=== PATIENT | male | born 1980 | race African-American/Black ===

== ENCOUNTER 2020-05-17 18:57 | Inpatient (IN) | payer MEDICAID, SELFPAY ==
[~2020-05-17 18:57] MED LIST: Iopamidol-370 76% 500 ML 1 ML ONE
[2020-05-17 19:30] LABS: #Lymphocytes 1.5 thou/uL (1.20-3.40); #Monocytes 0.8 thou/uL (0.11-0.59); #Neutrophils 8.7 thou/uL (1.40-6.50); %Basophils 0.3 % (0.0-1.0); %Eosinophils 0.2 % (0.0-10.0); %Lymphocytes 13.5 % (21.0-51.0); %Monocytes 7.1 % (0.0-10.0); Hemoglobin 14.5 g/dL (14.0-18.0); Mean Corpuscular HGB CONC 29.9 g/dL (32.0-36.0); Mean Corpuscular Hemoglobin 26.5 pg (27.0-31.0); Mean Corpuscular Volume 88.5 fL (78.0-98.0); Platelet Count 240 thou/uL (130-400); RBC Distribution Width 12.2 % (11.5-14.5)
[2020-05-17] MEDS ORDERED: cefTRIAXone\\ROCEPHIN 2 GM VIAL ONE (19:36)
[2020-05-17] MEDS ORDERED: Morphine 4 MG/ML VIAL ONE (19:36)
[2020-05-17 19:43] LABS: Platelet Morphology Comment Appears Adequate; RBC Morphology Normal
--- NOTE | 2020-05-17 19:46 | RAD ---
XR Chest 1 View Portable History: Chest pain Comparison: None Findings: Lungs are clear. No pneumothorax or effusion. Cardiac silhouette and mediastinal contours a re within normal limits. No acute osseous abnormality. Impression: No acute intrathoracic abnormality.
[2020-05-17 20:06] LABS: ALT (SGPT) 28 U/L (8-55); AST (SGOT) 13 U/L (5-34); Albumin 4.3 g/dL (3.5-5.0); Alkaline Phosphatase 130 U/L (40-110); BUN (Urea Nitrogen) 37 mg/dL (8.9-20.6); Bilirubin, Total 0.3 mg/dL (0.2-1.2); Calc. Creatinine Clearance 0 mL/min (70-130); Calcium 8.8 mg/dL (7.8-10.44); Carbon Dioxide Less than 8 mmol/L (22-29); Chloride 93 mmol/L (98-107); Estimated GFR-MDRD 33; Globulin 3.7 g/dL (2.4-3.5); Glucose 871 mg/dL (70-105); Lipase 14 U/L (8-78); Potassium 5.6 mmol/L (3.5-5.1); Sodium 129 mmol/L (136-145)
[2020-05-17 20:14] LABS: Acetaminophen Less than 6.0 mcg/mL (10.0-30.0); Alcohol Less than 10 mg/dL (Less than 10); Salicylate Less than 8.0 mg/dL (15.0-30.0)
[2020-05-17] MEDS ORDERED: Insulin Regular 300 UNITS/3 ML VIAL ONE (20:15)
[2020-05-17] MEDS ORDERED: Insulin Regular 100 units/100 ml in NS IVPB SCH (20:30)
--- NOTE | 2020-05-17 20:52 | CT ---
CT Abdomen Pelvis W Con History: Abdominal pain Comparison: None. Findings: Exam is limited due to motion artifact. The lung bases are clear. No pericardial effusion. Marked distention of the urinary bladder. Mild bilateral hydroureter and dilated renal pelvis by with out distal obstructing stone. The liver, spleen, pancreas, adrenal glands are unremarkable. The aortoiliac contour is nonaneurysmal . The appendix is visualized and is normal. Few mildly enlarged ileocolic mesenteric lymph nodes. No acute osseous abnormality. Impression: 1. Marked distention of the urinary bladder with subsequent mild dilatation of both renal pelvis and ureters due to increased back pressure. Evaluation for neurogenic bladder recommended. Olivo catheterization suggested. 2. No other acute inflammatory process within the abdomen or pelvis. Normal appendix.
[2020-05-17 21:09] LABS: Bilirubin Negative (Negative); Blood, Urine 1+ (Negative); Clarity Clear (Clear); Glucose, Urine (Dipstick) Greater than 1000 mg/dL (Negative); Leukocyte Negative Leu/uL (Negative); Mucous/LPF Rare LPF (<2+); Nitrite Negative (Negative); Protein, Urine (Dipstick) 20 mg/dL (Neg-Trace); RBC/HPF 0-3 HPF (0-3); Squamous Epithelial 0-3 HPF (0-3); Urobilinogen Normal mg/dL (Less than 2); WBC/HPF 0-3 HPF (0-3)
[2020-05-17 21:16] LABS: Bacteria/HPF Rare-Few HPF (None Seen)
[2020-05-17] MEDS ORDERED: Famotidine/PF 20 mg/2ml Vial SLOW IVP PRN (21:24)
[2020-05-17] MEDS ORDERED: NS 0.9% w/ 20 MEQ KCL 1,000 ML IV PRN ×2 (21:24)
[2020-05-17] MEDS ORDERED: Electrolyte Replacement Protoc 1 EACH EACH IVPB PRN (21:24)
[2020-05-17] MEDS ORDERED: Ondansetron ODT 4 MG TAB PO PRN (21:24)
[2020-05-17] MEDS ORDERED: Dextrose 5 %-0.45 % NaCl 1,000 ML IV PRN (21:24)
[2020-05-17] MEDS ORDERED: D5 1/2 NS w/20 mEq KCL 1,000 ML IV PRN (21:24)
[2020-05-17] MEDS ORDERED: Sodium Chloride 0.9% 1,000 ML IV PRN ×4 (21:24)
--- NOTE | 2020-05-17 21:29 | PDOC.HHP ---
Hospitalist HPI - History of Present Illness abdominal pain History of Present Illness: Case of an 40y/o male with pmhx of DMt2 who comes to hospital due to abdominal pain. patient refers he was on his usual state of health until about a week ago when he noticed he started with polyuria and polydyspsia. symptoms kept progressing and 2 days ago patient started with abdominal pain nause and vomiting. symptoms continued to progressed until pain was unberable 10/10 in epigastric area, non radiating and patient decided to come to hospital. At the ED patient was diagnosed with DKA with blood glucouse over 800, elevated anion gap acidosis and positive ketones in urine for which hospitalist was consulted for further evaluation and management. patient denies any fever chills dysuria diarrhe or cough, states has been compliant with medication despite not eating in the last 2 days due to abd discomfort. does refers this has happened in the past Hospitalist ROS - Review of Systems All other systems reviewed; all pertinent +/- noted in HPI/Subj Hospitalist History - Past Medical History Source: patient Endocrine: reports: Diabetes - Past Surgical History Past Surgical History: reports: no pertinent history - Family History Family History: reports: diabetes mellitus - Social History Smoking Status: Former smoker Alcohol: reports: None Drugs: reports: none Activity level: independent ambulation - Exam General Appearance: NAD, awake alert Eye: PERRL, anicteric sclera ENT: normocephalic atraumatic, no oropharyngeal lesions, dry oral mucosa Neck: supple, symmetric, no JVD, no thyromegaly Heart: no murmur, no gallops, no rubs, normal peripheral pulses Heart - other findings: tachycardia Respiratory: CTAB, no wheezes, no rales Gastrointestinal: soft, non-distended, normal bowel sounds, no palpable masses Extremities: no cyanosis, no clubbing, no edema Skin: normal turgor, no lesions, no rashes Neurological: cranial nerve grossly intact, normal sensation to touch, no weakness Musculoskeletal: normal tone, normal strength, no muscle wasting Psychiatric: normal affect, normal behavior, A&O x 3 Hospitalist Results - Labs Result Diagrams: 05/17/20 19:12 05/17/20 19:12 Lab results: WBC 11.0 thou/uL (4.8-10.8) H 05/17/20 19:12 Hgb 14.5 g/dL (14.0-18.0) 05/17/20 19:12 Hct 48.6 % (42.0-52.0) 05/17/20 19:12 MCV 88.5 fL (78.0-98.0) 05/17/20 19:12 Plt Count 240 thou/uL (130-400) 05/17/20 19:12 Neutrophils % 79.0 % (42.0-75.0) H 05/17/20 19:12 Sodium 129 mmol/L (136-145) L 05/17/20 19:12 Potassium 5.6 mmol/L (3.5-5.1) H 05/17/20 19:12 Chloride 93 mmol/L (98-107) L 05/17/20 19:12 Carbon Dioxide Less than 8 mmol/L (22-29) L* 05/17/20 19:12 BUN 37 mg/dL (8.9-20.6) H 05/17/20 19:12 Creatinine 2.62 mg/dL (0.7-1.3) H 05/17/20 19:12 Glucose 871 mg/dL (70-105) H* 05/17/20 19:12 Calcium 8.8 mg/dL (7.8-10.44) 05/17/20 19:12 Total Bilirubin 0.3 mg/dL (0.2-1.2) 05/17/20 19:12 AST 13 U/L (5-34) 05/17/20 19:12 ALT 28 U/L (8-55) 05/17/20 19:12 Alkaline Phosphatase 130 U/L (40-110) H 05/17/20 19:12 Troponin I Less than 0.010 ng/mL (< 0.028) 05/17/20 19:12 B-Natriuretic Peptide Less than 10.0 pg/mL (0-100) 05/17/20 19:12 Serum Total Protein 8.0 g/dL (6.0-8.3) 05/17/20 19:12 Albumin 4.3 g/dL (3.5-5.0) 05/17/20 19:12 Lipase 14 U/L (8-78) 05/17/20 19:12 Urine Ketones 100 mg/dL (Negative) A 05/17/20 20:56 Urine Blood 1+ (Negative) A 05/17/20 20:56 Urine Nitrite Negative (Negative) 05/17/20 20:56 Ur Leukocyte Esterase Negative Kj/uL (Negative) 05/17/20 20:56 Urine RBC 0-3 HPF (0-3) 05/17/20 20:56 Urine WBC 0-3 HPF (0-3) 05/17/20 20:56 Ur Squamous Epith Cells 0-3 HPF (0-3) 05/17/20 20:56 Urine Bacteria Rare-Few HPF (None Seen) 05/17/20 20:56 - Radiology Interpretation CT scan - abdomen Additional Comment: distended bladder Chest x-ray Additional Comment: no consolidation effusions or infiltrates Hospitalist H&P A/P - Problem (1) DKA (diabetic ketoacidoses) Code(s): E11.10 - TYPE 2 DIABETES MELLITUS WITH KETOACIDOSIS WITHOUT COMA Status: Acute (2) Metabolic acidosis due to diabetes mellitus Code(s): E11.69 - TYPE 2 DIABETES MELLITUS WITH OTHER SPECIFIED COMPLICATION; E87.2 - ACIDOSIS Status: Acute (3) Nausea & vomiting Code(s): R11.2 - NAUSEA WITH VOMITING, UNSPECIFIED Status: Acute (4) Intractable abdominal pain Code(s): R10.9 - UNSPECIFIED ABDOMINAL PAIN Status: Acute (5) Obese Code(s): E66.9 - OBESITY, UNSPECIFIED Status: Acute - Plan Plan: 40 y/o male type 2 DM who presents with DKA - insulin drip -aggressive hydration - bmp q 4 hrs, monitor K and anion gap - accu check q 1 hr - npo -symptomatic tx for n/v - pain management - dvt prophylaxis
[2020-05-17] MEDS ORDERED: HUMULIN R 100 UNITS in Sodium Chloride 0.9% 100 ML IVPB SCH (21:30)
[2020-05-17 22:41] LABS: BUN (Urea Nitrogen) 34 mg/dL (8.9-20.6); Calc. Creatinine Clearance 0 mL/min (70-130); Calcium 8.7 mg/dL (7.8-10.44); Chloride 103 mmol/L (98-107); Estimated GFR-MDRD 39; Potassium 5.1 mmol/L (3.5-5.1); Sodium 136 mmol/L (136-145)
[2020-05-17 22:48] LABS: Carbon Dioxide Less than 8 mmol/L (22-29); Glucose 608 mg/dL (70-105)
[2020-05-18 00:55] VITALS: BMI 31.8
[2020-05-18] MEDS: Ondansetron PF 4 MG/2 ML Vial IVP PRN ×2 (01:06→23:22)
[2020-05-18 02:18] LABS: Anion Gap 25 mmol/L (10-20); BUN (Urea Nitrogen) 29 mg/dL (8.9-20.6); Calc. Creatinine Clearance 73 mL/min (70-130); Calcium 8.1 mg/dL (7.8-10.44); Carbon Dioxide 10 mmol/L (22-29); Chloride 106 mmol/L (98-107); Estimated GFR-MDRD 52; Glucose 335 mg/dL (70-105); Potassium 4.6 mmol/L (3.5-5.1); Sodium 136 mmol/L (136-145)
[2020-05-18 04:02] LABS: Anion Gap 20 mmol/L (10-20); BUN (Urea Nitrogen) 27 mg/dL (8.9-20.6); Calc. Creatinine Clearance 80 mL/min (70-130); Calcium 8.1 mg/dL (7.8-10.44); Carbon Dioxide 14 mmol/L (22-29); Chloride 107 mmol/L (98-107); Estimated GFR-MDRD 58; Glucose 266 mg/dL (70-105); Potassium 4.4 mmol/L (3.5-5.1); Sodium 137 mmol/L (136-145)
[2020-05-18 06:19] LABS: Anion Gap 23 mmol/L (10-20); BUN (Urea Nitrogen) 25 mg/dL (8.9-20.6); Calc. Creatinine Clearance 84 mL/min (70-130); Carbon Dioxide 12 mmol/L (22-29); Chloride 106 mmol/L (98-107); Estimated GFR-MDRD 61; Glucose 289 mg/dL (70-105); Potassium 4.9 mmol/L (3.5-5.1); Sodium 136 mmol/L (136-145)
[2020-05-18] MEDS: Enoxaparin Sodium 40 MG/0.4 ML SYRINGE SC SCH (08:22)
[2020-05-18 08:23] LABS: Bicarbonate (HCO3v) 6.5 mmol/L (22.0-28.0); CO2 Tension (PvCO2) 24.3 mmHg (40.0-50.0)
[2020-05-18 08:24] LABS: Base Excess-Venous -22.7 mmol/L (-2.0 to 3.0); Calcium, Ionized 1.04 mmol/L (See Comments:); Chloride 101 mmol/L (98-107); Hemoglobin - Calc 17.4 g/dL (14.0-18.0); Potassium 5.4 mmol/L (3.5-5.1); Sodium 126 mmol/L (138-145); T. Carbon Dioxide 7.3 mmol/L (22.0-28.0); vO2 Saturation-calc 74.7 % (60.0-85.0)
[2020-05-18 08:25] LABS: Glucose Greater than 700 mg/dL (70-105); Lactate 6.65 mmol/L (0.50-2.20)
[2020-05-18 11:26] LABS: Lactic Acid 0.7 mmol/L (0.5-2.2)
--- NOTE | 2020-05-18 11:35 | PDOC.HOSPP ---
- Subjective Encounter Date: 05/18/20 Subjective: Patient says he is feeling better this morning. Denies any specific complaints. Patient actually only responds by nodding his head until asked to speak eventually. He then only ask if he is going to be able to get food. Has no further abdominal pain no nausea. - Objective Vital Signs & Weight: Vital Signs (12 hours) Temp Pulse Ox 05/18/20 11:26 99.0 F 05/18/20 08:00 100 05/18/20 07:17 98.6 F 05/18/20 03:42 98.7 F 05/18/20 00:28 98.8 F Weight Weight 203 lb 9.6 oz Most Recent Monitor Data Heart Rate from ECG 99 NIBP 102/47 NIBP BP-Mean 65 Respiration from ECG 13 SpO2 100 I&O: 05/17/20 05/18/20 05/19/20 06:59 06:59 06:59 Intake Total 1536 776.0 Output Total 950 Balance 586 776.0 Result Diagrams: 05/17/20 19:12 05/18/20 05:34 Additional Labs: Accuchecks 05/18/20 05/18/20 05/18/20 10:39 09:41 08:43 POC Glucose 239 H 261 H 240 H 05/18/20 05/18/20 05/18/20 07:47 06:25 05:09 POC Glucose 257 H 284 H 276 H 05/18/20 05/18/20 05/18/20 04:10 03:26 02:16 POC Glucose 217 H 239 H 278 H 05/18/20 05/17/20 05/17/20 01:32 22:56 22:23 POC Glucose 322 H 447 H 459 H 05/17/20 21:07 POC Glucose Greater than 550 H* Hospitalist ROS - Medication Medications: Active Medications Generic Name Dose Route Start Last Admin Trade Name Freq PRN Reason Stop Dose Admin Enoxaparin Sodium 40 mg 05/18/20 09:00 05/18/20 08:22 Lovenox SC 40 mg 0900 TAMIR Administration Potassium Chloride/Dextrose/Sod Cl 1,000 mls @ 250 mls/hr 05/17/20 21:24 04:19 D5 1/2 Ns W/20 Meq Kcl IV 1,000 mls .Q4H PRN Administration Step 4 of DKA Protocol Protocol Ondansetron HCl 4 mg 05/17/20 21:24 05/18/20 01:06 Zofran IVP 4 mg Q6H PRN Administration Nausea/Vomiting Sodium Chloride 10 ml 05/18/20 09:00 05/18/20 08:24 Flush - Normal Saline IVF Not Given Q12HR TAMIR - Exam General Appearance: NAD, awake alert Heart: RRR, no murmur, no gallops, no rubs Heart - other findings: Mild tachycardia Respiratory: CTAB, no wheezes, no rales, no ronchi, normal chest expansion, no tachypnea, normal percussion Gastrointestinal: soft, non-tender, non-distended, normal bowel sounds, no palpable masses, no hepatomegaly, no splenomegaly, no bruit Extremities: no cyanosis, no clubbing, no edema Skin: normal turgor, no lesions, no rashes Neurological: no focal deficits Musculoskeletal: normal tone, normal strength, no muscle wasting Psychiatric: normal affect, normal behavior, A&O x 3 Hosp A/P (1) DKA (diabetic ketoacidoses) Code(s): E11.10 - TYPE 2 DIABETES MELLITUS WITH KETOACIDOSIS WITHOUT COMA Status: Acute (2) Diabetes mellitus Code(s): E11.9 - TYPE 2 DIABETES MELLITUS WITHOUT COMPLICATIONS Status: Acute (3) Abdominal pain Code(s): R10.9 - UNSPECIFIED ABDOMINAL PAIN Status: Resolved (4) Nausea & vomiting Code(s): R11.2 - NAUSEA WITH VOMITING, UNSPECIFIED Status: Resolved (5) Obese Code(s): E66.9 - OBESITY, UNSPECIFIED Status: Acute - Plan Patient appears to be improving. Continue with the DKA protocol. We will repeat labs now. His last check his anion gap was still at 23. Clinically looks much better. We will go ahead and let him eat a diabetic diet. We will continue to monitor until he resolves his anion gap and then will start him on some long-acting insulin.
[2020-05-18 14:08] LABS: Anion Gap 10 mmol/L (10-20); BUN (Urea Nitrogen) 18 mg/dL (8.9-20.6); Calc. Creatinine Clearance 97 mL/min (70-130); Calcium 7.9 mg/dL (7.8-10.44); Carbon Dioxide 21 mmol/L (22-29); Chloride 109 mmol/L (98-107); Estimated GFR-MDRD 72; Glucose 171 mg/dL (70-105); Potassium 3.8 mmol/L (3.5-5.1); Sodium 136 mmol/L (136-145)
[2020-05-18] MEDS ORDERED: Dextrose 50% Abboject 50 ML SYRINGE IVP PRN (17:07)
[2020-05-18] MEDS ORDERED: Dextrose 5% in Water 1,000 ML IV PRN (17:07)
[2020-05-18] MEDS ORDERED: Insulin Glargine 10 UNITS in Pre-Filled Syringe 1 EACH SC SCH (17:15)
[2020-05-18 18:10] LABS: Anion Gap 13 mmol/L (10-20); BUN (Urea Nitrogen) 15 mg/dL (8.9-20.6); Calc. Creatinine Clearance 101 mL/min (70-130); Calcium 7.7 mg/dL (7.8-10.44); Carbon Dioxide 18 mmol/L (22-29); Chloride 108 mmol/L (98-107); Estimated GFR-MDRD 76; Glucose 182 mg/dL (70-105); Potassium 4.2 mmol/L (3.5-5.1); Sodium 135 mmol/L (136-145)
[2020-05-18] MEDS: HumaLOG 300 UNITS/3 ML VIAL SC PRN (20:08)
[2020-05-19] MEDS: HumaLOG 300 UNITS/3 ML VIAL SC PRN ×2 (06:12→13:03)
[2020-05-19 07:39] LABS: Hemoglobin 12.8 g/dL (14.0-18.0); Mean Corpuscular HGB CONC 32.5 g/dL (32.0-36.0); Mean Corpuscular Hemoglobin 26.1 pg (27.0-31.0); Mean Corpuscular Volume 80.6 fL (78.0-98.0); Platelet Count 163 thou/uL (130-400); RBC Distribution Width 11.9 % (11.5-14.5); Red Blood Cell (RBC) Count 4.91 mill/uL (4.70-6.10); White Blood Cell (WBC) Count 3.6 thou/uL (4.8-10.8)
[2020-05-19 07:53] LABS: Anion Gap 17 mmol/L (10-20); BUN (Urea Nitrogen) 16 mg/dL (8.9-20.6); Calc. Creatinine Clearance 94 mL/min (70-130); Calcium 7.9 mg/dL (7.8-10.44); Carbon Dioxide 18 mmol/L (22-29); Chloride 104 mmol/L (98-107); Estimated GFR-MDRD 70; Glucose 268 mg/dL (70-105); Sodium 135 mmol/L (136-145)
[2020-05-19 08:31] LABS: Band 9 % (5-11); Lymphocytes 30 % (21-51); MDiff Complete? YES; Monocytes 12 % (0-10); Neutrophil 49 % (42-75); Platelet Morphology Comment Appears Adequate; RBC Morphology Normal
[2020-05-19] MEDS: Enoxaparin Sodium 40 MG/0.4 ML SYRINGE SC SCH (09:03)
[2020-05-19] MEDS: Insulin Glargine 20 UNITS in Pre-Filled Syringe 1 EACH SC SCH (09:28)
--- NOTE | 2020-05-19 18:43 | PDOC.HOSPP ---
- Subjective Encounter Date: 05/19/20 Subjective: Generally doing better. He reported this morning that he was having some abdominal pain prior to my arrival. On my arrival the patient denied any abdominal pain. He did report some anorexia and was not much interested in his breakfast. He has not been up and around much either. - Objective Vital Signs & Weight: Vital Signs (12 hours) Temp Pulse Resp BP Pulse Ox 05/19/20 16:30 98.6 F 72 18 142/75 H 99 05/19/20 15:24 98.8 F 05/19/20 11:34 98.8 F 05/19/20 08:00 100 05/19/20 07:11 99.0 F Weight Weight 203 lb 9.6 oz Most Recent Monitor Data Heart Rate from ECG 81 NIBP 98/71 NIBP BP-Mean 80 Respiration from ECG 18 SpO2 100 I&O: 05/18/20 05/19/20 05/20/20 06:59 06:59 06:59 Intake Total 1536 2840.5 376 Output Total 950 2350 1870 Balance 586 490.5 -1494 Result Diagrams: 05/19/20 07:13 05/19/20 07:13 Additional Labs: Accuchecks 05/19/20 05/19/20 05/18/20 11:01 06:06 20:08 POC Glucose 272 H 288 H 243 H Hospitalist ROS - Medication Medications: Active Medications Generic Name Dose Route Start Last Admin Trade Name Freq PRN Reason Stop Dose Admin Enoxaparin Sodium 40 mg 05/18/20 09:00 05/19/20 09:03 Lovenox SC 40 mg 0900 TAMIR Administration Insulin Glargine 20 units/ 0.2 mls @ 0 mls/hr 05/19/20 09:00 05/19/20 09:28 Miscellaneous Medication SC 0.2 mls DAILY TAMIR Administration As Directed Insulin Human Lispro 0 units 05/18/20 17:07 05/19/20 13:03 Humalog SC 6 unit .MODERATE SLIDING SC PRN Administration MODERATE SLIDING SCALE Protocol Ondansetron HCl 4 mg 05/17/20 21:24 05/18/20 23:22 Zofran IVP 4 mg Q6H PRN Administration Nausea/Vomiting Sodium Chloride 10 ml 05/18/20 09:00 05/19/20 10:09 Flush - Normal Saline IVF 10 ml Q12HR TAMIR Administration - Exam General Appearance: NAD, awake alert Heart: RRR, no murmur, no gallops, no rubs, normal peripheral pulses Respiratory: CTAB, no wheezes, no rales, no ronchi, normal chest expansion, no tachypnea, normal percussion Gastrointestinal: soft, non-tender, non-distended, normal bowel sounds, no palpable masses, no hepatomegaly, no splenomegaly, no bruit Extremities: no cyanosis, no clubbing, no edema Skin: normal turgor, no lesions, no rashes Musculoskeletal: normal tone Psychiatric: normal affect, normal behavior, A&O x 3 Psychiatric - other findings: Stoic and reluctant to speak. Hosp A/P (1) DKA (diabetic ketoacidoses) Code(s): E11.10 - TYPE 2 DIABETES MELLITUS WITH KETOACIDOSIS WITHOUT COMA Status: Acute (2) Diabetes mellitus Code(s): E11.9 - TYPE 2 DIABETES MELLITUS WITHOUT COMPLICATIONS Status: Acute (3) Abdominal pain Code(s): R10.9 - UNSPECIFIED ABDOMINAL PAIN Status: Resolved (4) Nausea & vomiting Code(s): R11.2 - NAUSEA WITH VOMITING, UNSPECIFIED Status: Resolved (5) Obese Code(s): E66.9 - OBESITY, UNSPECIFIED Status: Acute (6) Acute kidney injury Code(s): N17.9 - ACUTE KIDNEY FAILURE, UNSPECIFIED Status: Acute - Plan Patient appears to be improving. His anion gap is resolved. He is off the insulin drip. I have resumed his usual home dose of Lantus 20 units in the morning. Continue with moderate sliding scale. Throughout the day his blood sugars appear to have continue to run high. Can add some additional Lantus for the night. We will recheck labs in the morning. Encouraged increased ambulation. His renal indices are improving. His GFR is back up to 70. Unclear as to what his baseline is.
[2020-05-19] MEDS ORDERED: Insulin Glargine 10 UNITS in Pre-Filled Syringe 1 EACH SC SCH (21:00)
[2020-05-19] MEDS ORDERED: HumaLOG 300 UNITS/3 ML VIAL SC PRN (21:05)
--- NOTE | 2020-05-19 21:55 | RAD ---
XR Chest 1 View Portable History: Altered mental status Comparison: Radiograph 2 days prior Findings: Lungs are clear. No pneumothorax or effusion. Cardiac silhouette and mediastinal contours a re within normal limits. Impression: No acute intrathoracic abnormality.
[2020-05-20] MEDS: HumaLOG 300 UNITS/3 ML VIAL SC PRN (06:13)
[2020-05-20 07:01] LABS: Anion Gap 14 mmol/L (10-20); BUN (Urea Nitrogen) 12 mg/dL (8.9-20.6); Calc. Creatinine Clearance 118 mL/min (70-130); Calcium 7.9 mg/dL (7.8-10.44); Carbon Dioxide 23 mmol/L (22-29); Chloride 101 mmol/L (98-107); Estimated GFR-MDRD 90; Glucose 240 mg/dL (70-105); Potassium 3.6 mmol/L (3.5-5.1); Sodium 134 mmol/L (136-145)
[2020-05-20] MEDS ORDERED: Famotidine 20 MG TAB PO PRN (08:09)
[2020-05-20 08:27] VITALS: BP 128/80; TEMP 98.8
[2020-05-20] MEDS: Insulin Glargine 20 UNITS in Pre-Filled Syringe 1 EACH SC SCH (09:20)
[2020-05-20] MEDS: Enoxaparin Sodium 40 MG/0.4 ML SYRINGE SC SCH (09:21)
--- NOTE | 2020-05-20 21:22 | DIS ---
DATE OF ADMISSION: 05/17/2020 DATE OF DISCHARGE: 05/20/2020 DISCHARGE DIAGNOSES: 1. Diabetic ketoacidosis. 2. Diabetes mellitus. 3. Abdominal pain. 4. Nausea, vomiting. 5. Obesity. 6. Acute kidney injury. HISTORY OF PRESENT ILLNESS: This patient is a 40-year-old male, has a history of diabetes. Patient recently moved to the area and does not have a primary care provider. He also did not have a glucometer to be able to monitor his blood sugars and was not really quite sure what his blood sugar range should be. The patient presented to the emergency department with abdominal pain, nausea, vomiting, and was found to be in diabetic ketoacidosis. HOSPITAL COURSE: The patient was admitted to the hospital. He had a CT of the abdomen and pelvis, which showed some bladder distention with subtle associated hydronephrosis. He subsequently was able to void well on his own. However, he was started on the DKA protocol. He did have some evidence of acute kidney injury with a GFR of 33 with hydration. His renal function improved and his GFR ultimately came up to 90 at the time of discharge. His anion gap normalized with insulin drip and fluids. He was able to come off the drip, convert over to long-acting and short-acting insulin. He felt well. His labs remained normal other than blood sugar still ranging in the 200s. He had some adjustments made with that, but he was tolerating a regular diet. All abdominal pain had resolved and he was felt stable for discharge. DISCHARGE EXAMINATION: VITAL SIGNS: On the day of discharge, temperature is 98.8, pulse 74, respirations 18, O2 saturation 99% on room air, and blood pressure 128/80. GENERAL: He is awake and alert. HEART: Regular rate and rhythm. LUNGS: Clear bilaterally. ABDOMEN: Benign. EXTREMITIES: No edema. DISPOSITION: The patient is discharged to home. He is to increase his Lantus regimen to Levemir 30 units in the morning, 10 units at night and continue with 15 units of NovoLog with his meals. He is given a prescription for a new glucometer and he is strongly encouraged to establish with a new primary care provider. He was given a list of potential options for local providers. His activity is as tolerated. He will be on a diabetic diet. He can return to the hospital at anytime should he have the need to do so. TIME SPENT: Total time in discharge activities was greater than 35 minutes. Job ID: [id number]
== END 2020-05-20 11:30 | disposition home or self-care (01) | DRG 638 ==
LOC: ERS 18:57 → IMCU/EMU 21:54 → T4-A 05-19 16:36
PROVIDERS: ADMIT Internal Medicine; ATTEND Internal Medicine
DX: E11.10 Type 2 diabetes mellitus with ketoacidosis without coma (principal); N17.9 Acute kidney failure, unspecified; E66.9 Obesity, unspecified; Z87.891 Personal history of nicotine dependence; Z68.31 Body mass index [BMI] 31.0-31.9, adult; Z88.0 Allergy status to penicillin; Z79.4 Long term (current) use of insulin
CPT/HCPCS: 36415; 36416; 71045; 74177; 80048; 80053; 80307; 81003; 81015; 82330; 82803; 83605; 83690; 83880; 84484; 85014; 85025; 87040; 93005; 96361; 96365; 96366; 96375; J0696; J1650; J1815; J2270; J2405; J3480; J3490; Q9967

== ENCOUNTER 2020-06-06 19:04 | Emergency (ER) | payer MEDICAID, SELFPAY ==
[2020-06-06] MEDS ORDERED: Mag-Al 1200 mg/1200 mg/30 ML UDCUP ONE (19:46)
[2020-06-06] MEDS ORDERED: Lidocaine Viscous Sol 2% 15 ml UD Cup ONE (19:46)
[2020-06-06] MEDS ORDERED: Insulin Regular 300 UNITS/3 ML VIAL ONE (20:02)
[2020-06-06 20:11] LABS: Hemoglobin 12.2 g/dL (14.0-18.0); Mean Corpuscular HGB CONC 32.8 g/dL (32.0-36.0); Mean Corpuscular Hemoglobin 26.3 pg (27.0-31.0); Mean Corpuscular Volume 80.3 fL (78.0-98.0); Mean Platelet Volume 8.5 fL (7.4-10.4); Platelet Count 156 thou/uL (130-400); RBC Distribution Width 11.6 % (11.5-14.5); Red Blood Cell (RBC) Count 4.65 mill/uL (4.70-6.10); White Blood Cell (WBC) Count 3.3 thou/uL (4.8-10.8)
[2020-06-06 20:29] LABS: ALT (SGPT) 56 U/L (8-55); AST (SGOT) 29 U/L (5-34); Albumin 3.7 g/dL (3.5-5.0); Alkaline Phosphatase 124 U/L (40-110); Anion Gap 11 mmol/L (10-20); BUN (Urea Nitrogen) 8 mg/dL (8.9-20.6); Band 9 % (5-11); Bilirubin, Total 0.3 mg/dL (0.2-1.2); Calc. Creatinine Clearance 0 mL/min (70-130); Calcium 8.5 mg/dL (7.8-10.44); Carbon Dioxide 28 mmol/L (22-29); Chloride 102 mmol/L (98-107); Estimated GFR-MDRD Greater than 90; Globulin 3.5 g/dL (2.4-3.5); Glucose 426 mg/dL (70-105); Lipase 19 U/L (8-78); Lymphocytes 32 % (21-51); MDiff Complete? YES; Monocytes 14 % (0-10); Neutrophil 25 % (42-75); Platelet Morphology Comment Appears Adequate; Polychromasia SLIGHT = 2-3 cells (100X) (0-2/hpf); Protein, Total 7.2 g/dL (6.0-8.3); Reactive Lymphocytes 20 % (0-10); Sodium 137 mmol/L (136-145)
--- NOTE | 2020-06-06 20:49 | RAD ---
SINGLE VIEW OF THE CHEST: Comparison: 05-19-2020 History: Abdominal pain and esophagus when swallowing food. Chest pain. FINDINGS: Single view of the chest shows a normal sized cardiomediastinal silhouette. There is no evidence of c onsolidation, mass, or pleural effusion. The bones are unremarkable. IMPRESSION: No evidence of acute cardiopulmonary disease. POS: EAA
--- NOTE | 2020-06-06 21:08 | CT ---
CT arteriogram chest with IV contrast and 3-D imaging HISTORY: Chest pain. FINDINGS: There is good contrast opacification of the pulmonary arteries and thoracic aorta with norm al branching great vessels at the aortic arch. Lungs are well-inflated with scattered minimal areas of groundglass parenchymal opacity. No pleural fluid or pneumothorax. No lobar consolidation. No mediastinal adenopathy evident. There is incomplete posterior fusion of several lower thoracic and upper vertebrae. IMPRESSION : No evidence of pulmonary embolus or other acute abnormality.
== END 2020-06-06 22:40 | disposition home or self-care (01) ==
LOC: ERS 19:04
DX: R07.89 Other chest pain (principal); R13.10 Dysphagia, unspecified; E11.9 Type 2 diabetes mellitus without complications; Z79.4 Long term (current) use of insulin
CPT/HCPCS: 36416; 71045; 71275; 80053; 83690; 84484; 85025; 85379; 93005; 94760; 96360; J1815; Q9967

== ENCOUNTER 2020-09-16 08:08 | Emergency (ER) | payer MEDICAID ==
[2020-09-16 09:05] LABS: #Lymphocytes 1.9 thou/uL (1.20-3.40); #Monocytes 0.5 thou/uL (0.11-0.59); #Neutrophils 1.5 thou/uL (1.40-6.50); %Eosinophils 0.9 % (0.0-10.0); %Lymphocytes 46.9 % (21.0-51.0); %Neutrophils 38.2 % (42.0-75.0); Hemoglobin 12.5 g/dL (14.0-18.0); Mean Corpuscular HGB CONC 32.8 g/dL (32.0-36.0); Mean Corpuscular Volume 79.2 fL (78.0-98.0); Mean Platelet Volume 8.1 fL (7.4-10.4); Platelet Count 213 thou/uL (130-400); RBC Distribution Width 11.7 % (11.5-14.5)
[2020-09-16 09:43] LABS: ALT (SGPT) 21 U/L (8-55); AST (SGOT) 29 U/L (5-34); Albumin 3.5 g/dL (3.5-5.0); Alkaline Phosphatase 92 U/L (40-110); Anion Gap 11 mmol/L (10-20); BUN (Urea Nitrogen) 14 mg/dL (8.9-20.6); Bilirubin, Total 0.3 mg/dL (0.2-1.2); CK (CPK) 155 U/L (30-200); Calc. Creatinine Clearance 0 mL/min (70-130); Calcium 8.6 mg/dL (7.8-10.44); Carbon Dioxide 26 mmol/L (22-29); Chloride 103 mmol/L (98-107); Estimated GFR-MDRD Greater than 90; Globulin 4.8 g/dL (2.4-3.5); Glucose 348 mg/dL (70-105); Potassium 4.3 mmol/L (3.5-5.1); Protein, Total 8.3 g/dL (6.0-8.3); Sodium 136 mmol/L (136-145)
[2020-09-16 11:36] LABS: Bacteria/HPF None Seen HPF (None Seen); Bilirubin Negative (Negative); Blood, Urine Negative (Negative); Clarity Clear (Clear); Glucose, Urine (Dipstick) Greater than 1000 mg/dL (Negative); Ketone, Urine Negative (Negative); Leukocyte 250 Leu/uL (Negative); Nitrite Negative (Negative); Protein, Urine (Dipstick) Negative (Neg-Trace); RBC/HPF 0-3 HPF (0-3); Specific Gravity, Urine 1.027 (1.002-1.036); Squamous Epithelial 0-3 HPF (0-3); Urobilinogen Normal mg/dL (Less than 2); Yeast-Budding Rare HPF (None Seen); pH, Urine 5.5 (5.0-9.0)
[2020-09-16 11:38] LABS: Yeast-Hyphae Rare HPF (None Seen)
== END 2020-09-16 11:29 | disposition home or self-care (01) ==
LOC: ERS 08:08
DX: E11.65 Type 2 diabetes mellitus with hyperglycemia (principal); F32.9 Major depressive disorder, single episode, unspecified; Z79.4 Long term (current) use of insulin; Z79.899 Other long term (current) drug therapy
CPT/HCPCS: 80053; 81003; 81015; 82010; 82550; 84484; 85025; 93005; 94760

== ENCOUNTER 2020-09-19 12:12 | Observation (INO) | payer MEDICAID, SELFPAY ==
[2020-09-19 13:03] LABS: Hemoglobin 12.4 g/dL (14.0-18.0); Mean Corpuscular HGB CONC 32.2 g/dL (32.0-36.0); Mean Corpuscular Hemoglobin 26.6 pg (27.0-31.0); Mean Corpuscular Volume 82.7 fL (78.0-98.0); Platelet Count 194 thou/uL (130-400); RBC Distribution Width 11.8 % (11.5-14.5); Red Blood Cell (RBC) Count 4.65 mill/uL (4.70-6.10); White Blood Cell (WBC) Count 4.1 thou/uL (4.8-10.8)
[2020-09-19 13:18] LABS: ALT (SGPT) 17 U/L (8-55); AST (SGOT) 15 U/L (5-34); Albumin 3.7 g/dL (3.5-5.0); Alkaline Phosphatase 100 U/L (40-110); Anion Gap 15 mmol/L (10-20); BUN (Urea Nitrogen) 11 mg/dL (8.9-20.6); Bilirubin, Total 0.5 mg/dL (0.2-1.2); Calc. Creatinine Clearance 0 mL/min (70-130); Calcium 8.5 mg/dL (7.8-10.44); Carbon Dioxide 25 mmol/L (22-29); Chloride 94 mmol/L (98-107); Estimated GFR-MDRD 53; Globulin 3.6 g/dL (2.4-3.5); Potassium 4.8 mmol/L (3.5-5.1); Protein, Total 7.3 g/dL (6.0-8.3); Sodium 129 mmol/L (136-145)
[2020-09-19 13:24] LABS: Bilirubin Negative (Negative); Blood, Urine Negative (Negative); Clarity Clear (Clear); Glucose, Urine (Dipstick) Greater than 1000 mg/dL (Negative); Ketone, Urine Negative (Negative); Leukocyte Negative Leu/uL (Negative); Nitrite Negative (Negative); Protein, Urine (Dipstick) Negative (Neg-Trace); Specific Gravity, Urine 1.028 (1.002-1.036); Urobilinogen Normal mg/dL (Less than 2)
[2020-09-19 13:25] LABS: Band 1 % (5-11); Hypochromia SLIGHT = 6-15 cells (100X) (0-5/hpf); Lymphocytes 45 % (21-51); MDiff Complete? YES; Monocytes 9 % (0-10); Neutrophil 41 % (42-75); Platelet Morphology Comment Appears Adequate; Reactive Lymphocytes 4 % (0-10)
[2020-09-19 13:30] LABS: Glucose 742 mg/dL (70-105)
[2020-09-19 13:45] LABS: Lipase 18 U/L (8-78); Magnesium 1.9 mg/dL (1.6-2.6); Phosphorus 2.9 mg/dL (2.3-4.7)
[2020-09-19] MEDS ORDERED: Insulin Regular 300 UNITS/3 ML VIAL ONE (14:24)
[2020-09-19 14:38] LABS: Analyzer IN Cardio ER
[2020-09-19 14:39] LABS: Actual Bicarbonate (HCO3v) 27 mEq/L (22-28); Calcium, Ionized (venous) 1.08 mmol/L (1.16-1.32); Chloride (VBG) 96 mmol/L (98-106); Hemoglobin (Hb) 11.5 g/dL (13.2-17.3); pH (venous) 7.36 (7.32-7.43)
[2020-09-19] MEDS ORDERED: Ondansetron PF 4 MG/2 ML Vial ONE (15:22)
[2020-09-19 15:46] LABS: Lactic Acid 2.1 mmol/L (0.5-2.2)
--- NOTE | 2020-09-19 16:01 | PDOC.FPRHP ---
- History of Present Illness Chief Complaint: elevated BG History of Present Illness: 40YO AAM with a PMH notable for IDDMII w/ severe LE neuropathy & possible HTN who presented to the ED for evaluation for elevated BG at home. Reports he was checking his BG as he normally does this afternoon and it was in the 400s. He then gave himself a short acting insulin bolus and began to feel nauseous and clammy & requested to be brought to the ER for evaluation. Denies any recent illness but did report a few episodes of diarrhea today and some abdominal cramping but no recent sick contacts, fever/chills, N/V or dysuria or hematuria. Does endorse polyuria. Reports compliance with his home insulin & recently got refills on both. Normally takes his levemir HS so has not taken it yet today. Of note, for the last month has had significant numbness in his B/L LEs from his feet all the way up to his mid calves. Reports he takes gabapentin BID but states it has not been helping. Reports an injury to his back about 20 years ago and associated leg cramping & weakness as well. ED Course: 10U insulin, 2L NS & 8mg zofran - Allergies/Adverse Reactions Allergies Allergy/AdvReac Type Severity Reaction Status Date / Time Penicillins Allergy Verified 05/18/20 00:53 - Home Medications Medication Instructions Recorded Confirmed Type Insulin Aspart [Novolog] 15 unit SQ TID 05/18/20 09/19/20 History Gabapentin 800 mg PO BID 09/19/20 09/19/20 History Insulin Detemir [Levemir] 60 unit SQ HS 09/19/20 09/19/20 History - History PMHx: DM2 w/ neuropathy, HTN (not on meds) PSHx: none FHx: multiple family members with cancer: colon and breast Social: denies T/A/D use, recently moved to from [place], no PCP - Review of Systems General: denies: fever/chills, weight/appetite/sleep changes Eyes: denies: vision changes ENT: denies: nasal congestion, rhinorrhea Respiratory: denies: cough, congestion, shortness of breath Cardiovascular: denies: chest pain, palpitation Gastrointestinal: reports: nausea, diarrhea. denies: vomiting, abdominal pain Genitourinary: reports: polyuria. denies: dysuria Skin: denies: rashes, lesions Musculoskeletal: denies: pain, tenderness Neurological: reports: numbness (b/l LE) Psychological: denies: anxiety - Vital signs BP: 141/83, HR 66, RR 18, T 98.3, O2 98% on RA - Physical Exam Constitutional: NAD, awake, alert and oriented HEENT: normocephalic and atraumatic, grossly normal vision, grossly normal hearing Neck: supple, FROM Heart: RRR, normal S1/S2, no murmurs/rubs/gallops, pulses present, no edema Lungs: CTAB, no respiratory distress, no wheezing Abdomen: soft, bowel sounds present -Abdomen: mild TTP periumbilical Musculoskeletal: normal structure, normal tone, ROM grossly normal -Neurological: decreased sensation bilateral LE up to knees, decreased fine touch and pain sensation Skin: capillary refill <2 seconds, no jaundice Heme/Lymphatic: no unusual bruising or bleeding Psychiatric: normal mood and affect, intact recent and remote memory FMR H&P: Results - Labs Result Diagrams: 09/19/20 12:35 09/19/20 18:48 Lab results: WBC 4.1 thou/uL (4.8-10.8) L 09/19/20 12:35 Hgb 12.4 g/dL (14.0-18.0) L 09/19/20 12:35 Hct 38.4 % (42.0-52.0) L 09/19/20 12:35 MCV 82.7 fL (78.0-98.0) 09/19/20 12:35 Plt Count 194 thou/uL (130-400) 09/19/20 12:35 Band Neuts % (Manual) 1 % (5-11) L 09/19/20 12:35 VBG pH 7.36 (7.32-7.43) 09/19/20 14:30 VBG pCO2 48.7 mmHg (42.0-51.0) 09/19/20 14:30 VBG pO2 64.2 mmHg (35.0-45.0) H 09/19/20 14:30 Sodium 129 mmol/L (136-145) L 09/19/20 12:35 Potassium 4.8 mmol/L (3.5-5.1) 09/19/20 12:35 Chloride 94 mmol/L (98-107) L 09/19/20 12:35 Carbon Dioxide 25 mmol/L (22-29) 09/19/20 12:35 BUN 11 mg/dL (8.9-20.6) 09/19/20 12:35 Creatinine 1.74 mg/dL (0.7-1.3) H 09/19/20 12:35 Glucose 742 mg/dL (70-105) H* 09/19/20 12:35 Lactic Acid 2.1 mmol/L (0.5-2.2) 09/19/20 15:21 Calcium 8.5 mg/dL (7.8-10.44) 09/19/20 12:35 Total Bilirubin 0.5 mg/dL (0.2-1.2) 09/19/20 12:35 AST 15 U/L (5-34) 09/19/20 12:35 ALT 17 U/L (8-55) 09/19/20 12:35 Alkaline Phosphatase 100 U/L (40-110) 09/19/20 12:35 Serum Total Protein 7.3 g/dL (6.0-8.3) 09/19/20 12:35 Albumin 3.7 g/dL (3.5-5.0) 09/19/20 12:35 Lipase 18 U/L (8-78) 09/19/20 12:35 Urine Ketones Negative mg/dL (Negative) 09/19/20 12:52 Urine Blood Negative (Negative) 09/19/20 12:52 Urine Nitrite Negative (Negative) 09/19/20 12:52 Ur Leukocyte Esterase Negative Kj/uL (Negative) 09/19/20 12:52 - EKG Interpretation EKG: reviewed, NSR FMR H&P: A/P - Plan 40yo male with hx of DM2 who presents with hyperglycemia and weakness #HHS -BG 742 on presentation, given 10units insulin and 2L NS, repeat BG 435 -AG 10, B-hydroxyburtyrate 0.60, pH 7.36 -will recheck BMP q2h, if around 300, will start home meds and SSI -consider insulin drip if BG>400 -NPO until better control -pending A1c, c-peptide, Sosm -LR @ 250ml/hr -CM consulted: [employer] for help with med management #Neuropathy -b/l LE neuropathy, worsening for past month -home meds: gabapentin -pending B12, folate -if B12 low, consider ordering MMA #AMNA -Cr 1.74 on admission. -on IVF as above -pending repeat BMP #Leukopenia: -WBC 4.1 but no s/s infection. -Will continue to trend. #Normocytic anemia: -H/H 12./, MCV 82.7 -pending Fe studies, folate, PBS, B12 #HTN -hx of HTN, not on meds -BP elevated on admission, but now normotensive -Will continue to monitor #DMII -home insulin held pending repeat BMP -Hypoglycemia protocol ordered IVFs: LR @ 250mL/hr VTE PPX: Lovenox Code: Full DIet: NPO, once BG better controlled add CC Dispo: Admit medical obs for BG control, will need to establish with local PCP, LOS<48hrs FMR H&P: Upper Level - Pertinent history PCP: None- CC HPI: 40YOM with a PMH notable for IDDMII presenting to the ED for evaluation for hyperglycemia. Reports he checked his BG this AM at home and it was in the 400s. Gave himself some short acting insulin & then developed dry mouth, nausea & weakness so was brought to the ER for evaluation. Endorses associated diarrhea, polyuria, & abdominal cramping. Denies any fever/chills, recent sick contacts, hematuria, dysuria, cough, or congestion. Reports compliance with his home insulin regimen. On arrival to the ED the patient's BG level was over 700, pH was 7.36 & ketones were 0.60 c/w HHS. Was given 10U regular insulin, 2L NS, & 8mg IV in the ER. ED course: See HPI. See Mathematics Improvement Teacher note for details of PMH. - Pertinent findings Labs/Imaging: EKG NSR pH 7.36 Ketones 0.60 BG 742 down to 435 ~2 hours later Lactate 2.1 K 4.8 UA >1k glucose WBC 4.1 H/H 12.4/38.4 REVIEW OF SYSTEMS: Gen: no fever, chills, + generalized weakness Neuro: no syncope, no weakness Eyes: no visual changes, no eye pain ENT: no sore throat, no congestion Resp: no cough, no SOB Card: no chest pain, no edema GI: + N/V/D, no constipation, + abdominal pain, no melena, no hematochezia : no dysuria, no hematuria, no incontinence MSK: + myalgias in B/L legs Heme: not on blood thinners Skin: no rash, no lesions/sores Vitals: BP: 126/73 HR: 65 RR: 17 Tmax: 98.3F Pox: 98% on RA Wt: 92 kg PHYSICAL EXAMINATION: General: NAD, alert and oriented x4 HEENT: MMM; no pharyngeal erythema or exudates; grossly normal vision & grossly normal hearing Neck: Supple. Full ROM. Heart/Cardiovascular System: RRR, no murmur, no edema, pedal pulses strong & equal Lungs/Respiratory System: CTAB Abdomen/Gastro-Intestinal System: soft w/ no significant abdominal tenderness, normal bowel sounds Extremities: Warm extremities. No cyanosis or edema noted. Compression stockings in place. Neuro: CN 2-12 grossly intact. Significant decreased sensation in B/L LEs from feet to knees w/ normal ROM & strength Psychiatry: Awake, Alert and cooperative with exam. Skin: No lesions, rashes, or ulcers noted. Musculoskeletal: Full ROM throughout - Plan Date/Time: 09/19/20 1601 I, Gaby Sutherland, have evaluated this patient and agree with findings/plan as outlined by engineering intern resident. Pertinent changes/additions are listed here. A/P: #HHS: Patient presented with a BG level of 742 but no anion gap or markedly elevated ketones. Serum pH was also just over 7.3 at 7.36. Was given 10U insulin, 2L NS, and 8mg Zofran. Last BG check around 1530 was down to 435. Will recheck a BMP now & if around 300 ok to continue with TAMIR SQ insulin but if still around 400 or higher will need to start an insulin drip. #Mild dehydration -Due to #1. s/p 2L in ED & will continue IVFs while NPO and hyperglycemia remains >300 w/ LR @ 250mL/hr #AMNA -Due to #1. Cr 1.74 on admission. Will continue to trend with QD BMPs & continue IVFs as noted above. #Leukopenia: -WBC 4.1 but no s/s infection. Will continue to trend. #Normocytic anemia: -H/H 12.4/38 on admission. Will obtain anemia studies including iron studies, peripheral smear, folate & B12 levels. #HTN -BP elevated on presentation in 150 systolic range. Will continue to monitor & likely start on meds tomorrow if it remains elevated overnight. PRNs for now. #DMII -Will hold home insulin dosing in setting of HHS & will adjust PRN based on BG readings while inpatient. A1c pending. -Hypoglycemia protocol ordered. ABx: None IVFs: LR @ 250mL/hr VTE PPX: Lovenox GI PPX: None Code status: FULL CODE Dispo: Admit to medical floor pending latest BMP for BG level s/p IV insulin dose for continued IVFs & TAMIR insulin for HHS. Addendum - Attending - Attending Attestation Date/Time: 09/19/202042 I personally evaluated the patient and discussed the management with Dr. Day/Koko I agree with the History, Examination, Assessment and Plan documented above with any addition or exceptions noted below. 40-year-old [place] male with a history of poorly controlled type 2 diabetes mellitus on insulin. Presents with symptomatic hyperglycemia. states he has been compliant with his insulin regimen but states his glucoses are labile. Also reports history of diabetic neuropathy in his feet and legs is worsened over the past month. States the gabapentin he is currently on is not helping him. States he has Medicaid insurance. Exam is largely unremarkable except for significant paresthesias below the knees bilaterally. Strength and reflexes are appropriate in his lower extremities. observation for severe hyperglycemia without DKA or HHS. we will aggressively titrate his insulin. continue every 2 hours BMPs and is untill his glucose is under 300 at which point we will go to every 6 hour Accu-Cheks. given that he has had little relief of his neuropathic symptoms on gabapentin, will start duloxetine and he will need to be titrated off gabapentin outpatient. I explained to him that his symptoms are likely due to his poorly controlled diabetes and that the current neurologic damage may be permanent. he expressed understanding. patient has mild anemia which is being worked up with iron studies, B12, and folate. I do not suspect that he has a component of vitamin B12 deficiency with his neuropathy and that is likely due to his poorly controlled type 2 diabetes. observation, medical, less than 2 midnights.
[2020-09-19 17:02] LABS: Anion Gap 13 mmol/L (10-20); BUN (Urea Nitrogen) 12 mg/dL (8.9-20.6); Calc. Creatinine Clearance 0 mL/min (70-130); Calcium 8.5 mg/dL (7.8-10.44); Carbon Dioxide 23 mmol/L (22-29); Chloride 103 mmol/L (98-107); Estimated GFR-MDRD 81; Glucose 389 mg/dL (70-105); Potassium 4.2 mmol/L (3.5-5.1); Sodium 135 mmol/L (136-145)
[2020-09-19] MEDS ORDERED: Dextrose 50% Abboject 50 ML SYRINGE SLOW IVP PRN (17:05)
[2020-09-19] MEDS ORDERED: Acetaminophen 325 MG TAB PO PRN (17:05)
[2020-09-19] MEDS ORDERED: Ondansetron PF 4 MG/2 ML Vial IVP PRN (17:05)
[2020-09-19] MEDS ORDERED: Dextrose 5% in Water 1,000 ML IV PRN (17:05)
[2020-09-19 17:11] LABS: Hemoglobin A1c Greater than 14.0 % (4.0-6.0)
[2020-09-19 17:44] VITALS: BMI 33.8
[2020-09-19] MEDS: Lactated Ringer's 1,000 ML IV SCH ×2 (18:31→21:25)
[2020-09-19 19:19] LABS: Iron Binding Capacity, Total 246 mcg/dL (261-462); Transferrin, Serum 197 mg/dL (174-364)
[2020-09-19 19:20] LABS: Anion Gap 15 mmol/L (10-20); BUN (Urea Nitrogen) 12 mg/dL (8.9-20.6); Calc. Creatinine Clearance 101 mL/min (70-130); Calcium 8.6 mg/dL (7.8-10.44); Carbon Dioxide 25 mmol/L (22-29); Chloride 101 mmol/L (98-107); Estimated GFR-MDRD 71; Glucose 389 mg/dL (70-105); Potassium 4.5 mmol/L (3.5-5.1); Sodium 136 mmol/L (136-145)
[2020-09-19 19:42] LABS: Ferritin 119.08 ng/mL (22-322); Thyroid Stimulating Hormone 1.3511 uIU/mL (0.35-4.94)
[2020-09-19] MEDS ORDERED: Melatonin 3 MG TAB PO PRN (20:42)
[2020-09-19] MEDS: Gabapentin 400 MG CAP PO SCH (20:59)
[2020-09-19] MEDS ORDERED: Non-Formulary Item 1 EACH (Insulin Detemir [Levemir] 100 UNIT/ML Vial) SQ SCH (21:00)
[2020-09-19] MEDS ORDERED: Insulin Glargine 40 UNITS in Pre-Filled Syringe 1 EACH SC SCH (21:00)
[2020-09-19] MEDS ORDERED: Insulin Glargine 10 UNITS in Pre-Filled Syringe 1 EACH SC SCH (21:00)
[2020-09-19] MEDS: Ondansetron ODT 4 MG TAB PO PRN (21:04)
[2020-09-19] MEDS: HumaLOG 300 UNITS/3 ML VIAL SC PRN (21:24)
[2020-09-20] MEDS: Lactated Ringer's 1,000 ML IV SCH ×3 (03:00→11:54)
[2020-09-20] MEDS: HumaLOG 300 UNITS/3 ML VIAL SC PRN ×4 (05:10→19:55)
--- NOTE | 2020-09-20 06:06 | PDOC.FM ---
- Subjective Subjective: Patient doing well this AM, no acute concerns. Still reports BLT Lower extremity numbness. - Objective Vital Signs & Weight: Vital Signs (12 hours) Temp Pulse Resp BP Pulse Ox 09/20/20 04:00 97.6 F 67 18 138/84 93 L 09/20/20 00:00 98.6 F 70 18 129/78 94 L 09/19/20 20:00 95 09/19/20 19:41 98.7 F 67 18 137/66 95 Weight Weight 98.118 kg I&O: 09/18/20 09/19/20 09/20/20 07:59 06:59 06:59 Intake Total 480 Balance 480 Result Diagrams: 09/20/20 06:23 09/20/20 05:24 Phys Exam - Physical Examination Constitutional: NAD Respiratory: no wheezing, no rales, no rhonchi, clear to auscultation bilateral Cardiovascular: RRR, no significant murmur, no rub Gastrointestinal: soft, non-tender, no distention Musculoskeletal: no edema, pulses present Neurological: moves all 4 limbs Decreased sensation in BLT LE below mid calf Dx/Plan - Plan Plan: 40yo male with hx of DM2 who presents with hyperglycemia and weakness HHS -BG 742 on presentation, AG 10, B-hydroxyburtyrate 0.60, pH 7.36 -Insulin regimen today-50u Detemir QHS, 10u Novolg TID-if BG stable -consider insulin drip if BG>400 -NPO until better control -LR @ 250ml/hr -CM consulted: home health for help with med management -C Peptide pending Neuropathy -b/l LE neuropathy, worsening for past month -home meds: gabapentin AMNA -Cr 1.74 on admission, improving with IVF Leukopenia: -WBC 4.1 but no s/s infection. -Will continue to trend. Normocytic anemia: -H/H 12.4/38, MCV 82.7 -TIBC, Fe low, B12/folate wnl HTN -hx of HTN, not on meds -BP elevated on admission, but now normotensive -Will continue to monitor DMII -home insulin held pending repeat BMP -Hypoglycemia protocol ordered IVFs: LR @ 250mL/hr VTE PPX: Lovenox Code: Full DIet: NPO, once BG better controlled add CC Dispo: Admit medical obs for BG control, will need to establish with local PCP, LOS<48hrs Addendum - Attending - Attending Attestation Date/Time: 09/20/201920 I personally evaluated the patient and discussed the management with Dr. Fonseca I agree with the History, Examination, Assessment and Plan documented above with any addition or exceptions noted below - Patient without complaints. Feeling better. Afebrile VSS A/P: 1) HHS- resolved. 2) DM- restarted on long acting insulin. Pre-moriah insulin added. Continue to monitor and adjust.
[2020-09-20 06:22] LABS: Anion Gap 12 mmol/L (10-20); BUN (Urea Nitrogen) 11 mg/dL (8.9-20.6); Calc. Creatinine Clearance 143 mL/min (70-130); Calcium 8.6 mg/dL (7.8-10.44); Carbon Dioxide 26 mmol/L (22-29); Chloride 102 mmol/L (98-107); Estimated GFR-MDRD Greater than 90; Glucose 302 mg/dL (70-105); Potassium 3.9 mmol/L (3.5-5.1); Sodium 136 mmol/L (136-145)
[2020-09-20 06:57] LABS: Hemoglobin 12.3 g/dL (14.0-18.0); Lymphocytes 47 % (21-51); MDiff Complete? YES; Mean Corpuscular HGB CONC 32.7 g/dL (32.0-36.0); Mean Corpuscular Volume 79.5 fL (78.0-98.0); Mean Platelet Volume 7.2 fL (7.4-10.4); Monocytes 9 % (0-10); Neutrophil 44 % (42-75); Platelet Count 204 thou/uL (130-400); Platelet Morphology Comment Appears Adequate; RBC Distribution Width 11.7 % (11.5-14.5); Red Blood Cell (RBC) Count 4.73 mill/uL (4.70-6.10); White Blood Cell (WBC) Count 4.1 thou/uL (4.8-10.8)
[2020-09-20] MEDS ORDERED: HumaLOG 300 UNITS/3 ML VIAL SC SCH ×2 (08:00→17:00)
[2020-09-20] MEDS: Gabapentin 400 MG CAP PO SCH ×2 (08:36→19:53)
[2020-09-20] MEDS: DULoxetine 60 MG CAP PO SCH (08:36)
[2020-09-20] MEDS: Enoxaparin Sodium 40 MG/0.4 ML SYRINGE SC SCH (08:37)
[2020-09-20] MEDS ORDERED: Insulin Glargine 30 UNITS in Pre-Filled Syringe 1 EACH SC SCH (09:00)
[2020-09-20] MEDS ORDERED: Non-Formulary Item 1 EACH (Insulin Detemir [Levemir] 100 UNIT/ML Vial) SQ SCH (09:00)
[2020-09-20] MEDS ORDERED: HumuLIN 70/30 (300 UNITS/3 ML VIAL) SC SCH (11:30)
[2020-09-20 13:01] LABS: SARS-CoV-2 MS2 Positive; SARS-CoV-2 N Gene Negative; SARS-CoV-2 S Gene Negative; SARS-CoV-2 by NAA Not Detected (NotDetected); SARS-CoV-2 orf1ab Negative
[2020-09-20] MEDS ORDERED: Insulin Glargine 50 UNITS in Pre-Filled Syringe 1 EACH SC SCH (21:00)
[2020-09-21] MEDS: Ondansetron ODT 4 MG TAB PO PRN (04:50)
[2020-09-21] MEDS: HumaLOG 300 UNITS/3 ML VIAL SC PRN (05:37)
--- NOTE | 2020-09-21 06:21 | PDOC.FM ---
- Subjective Subjective: Patient doing well this AM, neuropathy improving, discussed restarting metformin, patient agreeable, hesitant 2/2 hearing it can harm your kidneys. Discussed that benefits of metformin outweigh risk of kidney injury, however, can be monitored outpatient. - Objective Vital Signs & Weight: Vital Signs (12 hours) Temp Pulse Resp BP Pulse Ox 09/20/20 19:00 98.7 F 61 20 141/86 H 99 Weight Weight 98.118 kg I&O: 09/19/20 09/20/20 09/21/20 06:59 06:59 06:59 Intake Total 480 4170 Balance 480 4170 Result Diagrams: 09/20/20 06:23 09/21/20 06:33 Phys Exam - Physical Examination Constitutional: NAD Respiratory: no wheezing, no rales, no rhonchi, clear to auscultation bilateral Cardiovascular: RRR, no significant murmur, no rub Gastrointestinal: soft, non-tender, no distention, positive bowel sounds Musculoskeletal: no edema, pulses present Dx/Plan - Plan Plan: 40yo male with hx of DM2 who presents with hyperglycemia and weakness [facility] -BG 742 on presentation, AG 10, B-hydroxyburtyrate 0.60, pH 7.36 -Insulin regimen today-60u Detemir QHS, 10u Novolg TID-if BG stable -consider insulin drip if BG>400 -CM consulted: home health for help with med management - Start metformin 500 mg BID Neuropathy -b/l LE neuropathy, worsening for past month -home meds: gabapentin AMNA -Cr 1.74 on admission, improved with IVF Leukopenia: -WBC 4.1 stable with no s/s infection. Normocytic anemia: -H/H 12.4/38, MCV 82.7 -TIBC, Fe low, B12/folate wnl HTN -hx of HTN, not on meds -BP elevated on admission, but now normotensive -Will continue to monitor DMII -home insulin held pending repeat BMP -Hypoglycemia protocol ordered IVFs: SL VTE PPX: Lovenox Code: Full DIet: CC Dispo: Admit medical obs for BG control, will need to establish with local PCP, LOS<48hrs Addendum - Attending - Attending Attestation Date/Time: 09/21/20 1820 I personally evaluated the patient and discussed the management with Dr. Fonseca I agree with the History, Examination, Assessment and Plan documented above with any addition or exceptions noted below - Patient without complaints. Feeling much better. Afebrile VSS. A/P: 1) HHS- resolved 2) Type 2 DM- BG improved; plan to d/c home today. Has appointment with [employer] tomorrow. Stressed importance of follow-up.
[2020-09-21 06:30] VITALS: TEMP 98.3
[2020-09-21 07:09] LABS: Anion Gap 13 mmol/L (10-20); BUN (Urea Nitrogen) 9 mg/dL (8.9-20.6); Calc. Creatinine Clearance 156 mL/min (70-130); Calcium 8.7 mg/dL (7.8-10.44); Carbon Dioxide 27 mmol/L (22-29); Chloride 102 mmol/L (98-107); Estimated GFR-MDRD Greater than 90; Glucose 282 mg/dL (70-105); Sodium 138 mmol/L (136-145)
[2020-09-21] MEDS ORDERED: HumaLOG 300 UNITS/3 ML VIAL SC SCH (08:00)
[2020-09-21] MEDS: DULoxetine 60 MG CAP PO SCH (08:07)
[2020-09-21] MEDS: Gabapentin 400 MG CAP PO SCH (08:12)
[2020-09-21] MEDS: HumaLOG 300 UNITS/3 ML VIAL SC SCH ×2 (08:13→12:10)
[2020-09-21] MEDS: Enoxaparin Sodium 40 MG/0.4 ML SYRINGE SC SCH (08:13)
[2020-09-21 08:18] VITALS: BP 139/86
[2020-09-21] MEDS ORDERED: metFORMIN 500 MG TAB PO SCH (17:00)
[2020-09-21] MEDS ORDERED: Insulin Glargine 60 UNITS in Pre-Filled Syringe 1 EACH SC SCH (21:00)
--- NOTE | 2020-09-23 12:08 | DIS ---
DATE OF ADMISSION: 09/19/2020 DATE OF DISCHARGE: 09/21/2020 RESIDENT: Chema Fonseca MD ADMITTING ATTENDING: Chan Fernandez MD DISCHARGE ATTENDING: Allison Jung MD PRIMARY DIAGNOSIS: Hyperosmolar hyperglycemic state. SECONDARY DIAGNOSES: Diabetes type 2, hypertension. DISCHARGE MEDICATIONS: 1. Metformin 500 mg b.i.d. 2. Cymbalta 60 mg daily. 3. Gabapentin 800 mg b.i.d. 4. Insulin detemir 60 units subcu at bedtime. 5. Insulin Aspart 15 units subcu t.i.d. with meals. DISCONTINUED MEDICATIONS: None. HISTORY OF PRESENT ILLNESS/HOSPITAL COURSE: The patient is a 40-year-old male who presented to the ED for chief complaint of weakness. The patient reports that he checks his blood sugar at home and it was in the 400s. He gave himself short- acting insulin and began to feel weak. On arrival to the ER, the patient's blood glucose was 742. The patient was given fluids and insulin. The patient did not have an anion gap, therefore, DKA protocol was not started. The patient reported that he had not been taking his insulin as prescribed. He typically took the 60 units long-acting at night but did not always take the 15 units short-acting during the day. A1c was over 14. The patient's blood sugars while inpatient were consistently above 200. Discharge was complicated by insurance being [place] Medicaid. The patient reports that he has been refilling medications with no problems. When we discussed insurance with the patient, patient reported that he had insurance, however, before discharge, it was brought to our attention that insurance likely would not cover medications. We discussed switching patient to 70/30 insulin. However, the patient wanted to leave. The patient reported that he had one dose of long-acting insulin at home. Discussed with patient and it was decided to give lunch time short-acting insulin, then discharge the patient and have patient take dose of long-acting insulin at night. The patient has followup appointment at 9:45 on 09/22 with [employer]. [facility] costs. DISPOSITION: Stable. DISCHARGE INSTRUCTIONS: 1. Location: Home. 2. Diet: Consistent carb. 3. Activity: As tolerated. 4. Followup: Follow up with [facility] on 09/22 at scheduled appointment. Job ID: [id number] [facility] HOSPITALDewayne
== END 2020-09-21 12:42 | disposition home or self-care (01) ==
LOC: ERS 12:12 → T4-A 16:00
PROVIDERS: ADMIT Student in an Organized Health Care Education/Training Program; ATTEND Student in an Organized Health Care Education/Training Program
DX: E11.00 Type 2 diabetes mellitus with hyperosmolarity without nonketotic hyperglycemic-hyperosmolar coma (NKHHC) (principal); E11.65 Type 2 diabetes mellitus with hyperglycemia; E11.40 Type 2 diabetes mellitus with diabetic neuropathy, unspecified; I10 Essential (primary) hypertension; N17.9 Acute kidney failure, unspecified; D64.9 Anemia, unspecified; D72.819 Decreased white blood cell count, unspecified; Z79.4 Long term (current) use of insulin; Z79.899 Other long term (current) drug therapy; Z88.0 Allergy status to penicillin; Z20.828 Contact with and (suspected) exposure to other viral communicable diseases
CPT/HCPCS: 36415; 36416; 80048; 80053; 81003; 82010; 82607; 82728; 82746; 82805; 83036; 83540; 83550; 83605; 83690; 83735; 83930; 84100; 84443; 84466; 84484; 84681; 85025; 87635; 93005; 96372; 96374; 96375; G0378; J1650; J1815; J2405; Q0162; U0003

== ENCOUNTER 2020-12-05 12:49 | Emergency (ER) | payer SELFPAY ==
--- NOTE | 2020-12-05 13:41 | RAD ---
EXAM: CHEST ONE VIEW HISTORY: Cough. Hyperglycemia. Nausea. COMPARISON: 06/06/2020 FINDINGS: Cardiac silhouette is magnified by projection but does appear mildly enlarged. The pulmonary vasculat ure is within normal limits. The lungs are clear. No other interval change from prior exam. IMPRESSION: 1. No acute cardiopulmonary process. 2. Cardiac silhouette is magnified by projection but does appear mildly enlarged when compared to jayesh or exam.
[2020-12-05 13:56] LABS: #Basophils 0.1 thou/uL (0.0-0.2); #Lymphocytes 1.9 thou/uL (1.20-3.40); #Monocytes 0.4 thou/uL (0.11-0.59); #Neutrophils 2.2 thou/uL (1.40-6.50); %Basophils 1.6 % (0.0-1.0); %Eosinophils 0.5 % (0.0-10.0); %Lymphocytes 41.4 % (21.0-51.0); %Monocytes 8.1 % (0.0-10.0); %Neutrophils 48.5 % (42.0-75.0); Hemoglobin 10.4 g/dL (14.0-18.0); Mean Corpuscular HGB CONC 33.2 g/dL (32.0-36.0); Mean Corpuscular Hemoglobin 26.6 pg (27.0-31.0); Mean Platelet Volume 7.8 fL (7.4-10.4); Platelet Count 202 thou/uL (130-400); RBC Distribution Width 11.6 % (11.5-14.5); White Blood Cell (WBC) Count 4.6 thou/uL (4.8-10.8)
[2020-12-05] MEDS ORDERED: Ondansetron PF 4 MG/2 ML Vial ONE (14:04)
[2020-12-05 14:18] LABS: ALT (SGPT) 14 U/L (8-55); AST (SGOT) 13 U/L (5-34); Albumin 3.6 g/dL (3.5-5.0); Alkaline Phosphatase 102 U/L (40-110); Anion Gap 17 mmol/L (10-20); BUN (Urea Nitrogen) 24 mg/dL (8.9-20.6); Bilirubin, Total 0.6 mg/dL (0.2-1.2); Calc. Creatinine Clearance 0 mL/min (70-130); Calcium 8.3 mg/dL (7.8-10.44); Carbon Dioxide 24 mmol/L (22-29); Chloride 97 mmol/L (98-107); Globulin 4.4 g/dL (2.4-3.5); Glucose 540 mg/dL (70-105); Lipase 15 U/L (8-78); Magnesium 2.2 mg/dL (1.6-2.6); Potassium 4.6 mmol/L (3.5-5.1); Sodium 133 mmol/L (136-145)
[2020-12-05 14:32] LABS: Bacteria/HPF None Seen HPF (None Seen); Bilirubin Negative (Negative); Blood, Urine 3+ (Negative); Clarity Clear (Clear); Glucose, Urine (Dipstick) Greater than 1000 mg/dL (Negative); Ketone, Urine 20 mg/dL (Negative); Leukocyte Negative Leu/uL (Negative); Nitrite Negative (Negative); Protein, Urine (Dipstick) 20 mg/dL (Neg-Trace); RBC/HPF Greater than 50 HPF (0-3); Specific Gravity, Urine 1.021 (1.002-1.036); Squamous Epithelial 0-3 HPF (0-3); Urobilinogen Normal mg/dL (Less than 2); WBC/HPF 0-3 HPF (0-3); pH, Urine 5.5 (5.0-9.0)
[2020-12-05] MEDS ORDERED: HumaLOG 300 UNITS/3 ML VIAL ONE (16:00)
--- NOTE | 2020-12-25 21:50 | EKG ---
Test Reason : HIGH GLUCOSE Blood Pressure : / mmHG Vent. Rate : 093 BPM Atrial Rate : 093 BPM P-R Int : 170 ms QRS Dur : 088 ms QT Int : 350 ms P-R-T Axes : 043 007 019 degrees QTc Int : 435 ms Normal sinus rhythm Possible Left atrial enlargement Borderline ECG Confirmed by BELLA FENTON DO ([id number]), supervising film or videotape editor GLENNY MADRID ([id number]) on 12/25/2020 9:49:58 PM Referred By: Confirmed By:BELLA FENTON DO
== END 2020-12-05 16:12 | disposition home or self-care (01) ==
LOC: ERS 12:49
DX: E11.65 Type 2 diabetes mellitus with hyperglycemia (principal); R11.2 Nausea with vomiting, unspecified; I10 Essential (primary) hypertension; Z79.4 Long term (current) use of insulin
CPT/HCPCS: 36415; 36416; 71045; 80053; 81003; 81015; 82010; 83690; 83735; 84484; 85025; 93005; 96374; J2405

== ENCOUNTER 2020-12-07 21:46 | Emergency (ER) | payer SELFPAY ==
[2020-12-07 22:20] LABS: Hemoglobin 10.4 g/dL (14.0-18.0); Mean Corpuscular HGB CONC 32.1 g/dL (32.0-36.0); Mean Corpuscular Hemoglobin 25.5 pg (27.0-31.0); Mean Corpuscular Volume 79.5 fL (78.0-98.0); Mean Platelet Volume 7.8 fL (7.4-10.4); Platelet Count 203 thou/uL (130-400); RBC Distribution Width 11.4 % (11.5-14.5); Red Blood Cell (RBC) Count 4.08 mill/uL (4.70-6.10); White Blood Cell (WBC) Count 4.3 thou/uL (4.8-10.8)
[2020-12-07 22:30] LABS: #Basophils 0.1 thou/uL (0.0-0.2); #Lymphocytes 2.1 thou/uL (1.20-3.40); #Monocytes 0.4 thou/uL (0.11-0.59); #Neutrophils 1.8 thou/uL (1.40-6.50); %Basophils 1.3 % (0.0-1.0); %Eosinophils 0.6 % (0.0-10.0); %Lymphocytes 47.7 % (21.0-51.0); %Monocytes 9.3 % (0.0-10.0)
[2020-12-07 22:56] LABS: ALT (SGPT) 15 U/L (8-55); AST (SGOT) 17 U/L (5-34); Albumin 3.6 g/dL (3.5-5.0); Alkaline Phosphatase 103 U/L (40-110); Anion Gap 16 mmol/L (10-20); BUN (Urea Nitrogen) 21 mg/dL (8.9-20.6); Bilirubin, Total 0.7 mg/dL (0.2-1.2); Calc. Creatinine Clearance 0 mL/min (70-130); Calcium 8.1 mg/dL (7.8-10.44); Carbon Dioxide 25 mmol/L (22-29); Chloride 94 mmol/L (98-107); Globulin 4.7 g/dL (2.4-3.5); Potassium 4.7 mmol/L (3.5-5.1); Protein, Total 8.3 g/dL (6.0-8.3); Sodium 130 mmol/L (136-145)
[2020-12-07 23:01] LABS: Glucose 674 mg/dL (70-105)
[2020-12-07] MEDS ORDERED: Insulin Regular 300 UNITS/3 ML VIAL ONE (23:36)
--- NOTE | 2020-12-08 07:11 | RAD ---
PORTABLE CHEST: Date: 12/07/2020 HISTORY: Chest pain. Elevated blood sugar. COMPARISON: 12/05/2020 exam. FINDINGS: Heart size appears borderline enlarged for portable technique. Mediastinal structures are unremarkabl e. Lungs are clear of infiltrates. There are no signs of failure. IMPRESSION: No active intrathoracic disease. Heart size upper limits of normal. POS: OFF
--- NOTE | 2020-12-25 22:16 | EKG ---
Test Reason : Blood Pressure : / mmHG Vent. Rate : 083 BPM Atrial Rate : 083 BPM P-R Int : 168 ms QRS Dur : 086 ms QT Int : 360 ms P-R-T Axes : 048 013 023 degrees QTc Int : 423 ms Normal sinus rhythm Possible Left atrial enlargement Borderline ECG Confirmed by JULIANA CARRILLO DO ([id number]), associate entertainment editor GLENNY MADRID ([id number]) on 12/25/2020 10:16:34 PM Referred By: Confirmed By:JULIANA CARRILLO DO
== END 2020-12-07 23:58 | disposition home or self-care (01) ==
LOC: ERS 21:46
DX: E11.65 Type 2 diabetes mellitus with hyperglycemia (principal); Z79.4 Long term (current) use of insulin
CPT/HCPCS: 36415; 36416; 71045; 80053; 84484; 85025; 93005; J1815

== ENCOUNTER 2020-12-08 21:50 | Emergency (ER) | payer SELFPAY ==
[2020-12-08 22:45] LABS: Bacteria/HPF None Seen HPF (None Seen); Bilirubin Negative (Negative); Blood, Urine 3+ (Negative); Clarity Clear (Clear); Glucose, Urine (Dipstick) Greater than 1000 mg/dL (Negative); Ketone, Urine Trace mg/dL (Negative); Leukocyte Negative Leu/uL (Negative); Nitrite Negative (Negative); Protein, Urine (Dipstick) Negative (Neg-Trace); RBC/HPF Greater than 50 HPF (0-3); Specific Gravity, Urine 1.017 (1.002-1.036); Squamous Epithelial 0-3 HPF (0-3); Urobilinogen Normal mg/dL (Less than 2); WBC/HPF 0-3 HPF (0-3); pH, Urine 6.5 (5.0-9.0)
[2020-12-08 22:45] LABS: ALT (SGPT) 12 U/L (8-55); AST (SGOT) 14 U/L (5-34); Albumin 3.1 g/dL (3.5-5.0); Alkaline Phosphatase 97 U/L (40-110); Anion Gap 14 mmol/L (10-20); BUN (Urea Nitrogen) 16 mg/dL (8.9-20.6); Bilirubin, Total 0.6 mg/dL (0.2-1.2); Calc. Creatinine Clearance 0 mL/min (70-130); Calcium 7.2 mg/dL (7.8-10.44); Carbon Dioxide 22 mmol/L (22-29); Chloride 95 mmol/L (98-107); Globulin 3.9 g/dL (2.4-3.5); Potassium 4.4 mmol/L (3.5-5.1); Sodium 127 mmol/L (136-145)
[2020-12-08 22:54] LABS: Hemoglobin 9.1 g/dL (14.0-18.0); Lymphocytes 36 % (21-51); MDiff Complete? YES; Mean Corpuscular HGB CONC 32.1 g/dL (32.0-36.0); Mean Corpuscular Hemoglobin 25.8 pg (27.0-31.0); Mean Corpuscular Volume 80.6 fL (78.0-98.0); Mean Platelet Volume 8.1 fL (7.4-10.4); Monocytes 4 % (0-10); Neutrophil 60 % (42-75); Platelet Count 189 thou/uL (130-400); RBC Distribution Width 11.4 % (11.5-14.5); Red Blood Cell (RBC) Count 3.51 mill/uL (4.70-6.10); White Blood Cell (WBC) Count 3.8 thou/uL (4.8-10.8)
[2020-12-08 22:57] LABS: Glucose 782 mg/dL (70-105)
[2020-12-08] MEDS ORDERED: Insulin Regular 300 UNITS/3 ML VIAL ONE (23:07)
== END 2020-12-09 00:01 | disposition home or self-care (01) ==
LOC: ERS 21:50
DX: E11.65 Type 2 diabetes mellitus with hyperglycemia (principal); E86.0 Dehydration; I10 Essential (primary) hypertension; Z79.4 Long term (current) use of insulin
CPT/HCPCS: 36415; 36416; 80053; 81003; 81015; 82010; 85025; 96374; J1815